=== PATIENT | male | born 1985 ===

== ENCOUNTER 2021-04-27 17:46 | Emergency (ER) | payer MEDICAID ==
[~2021-04-27] VITALS: Ht 190.5 cm; Wt 127.0 kg
[2021-04-27] MEDS ORDERED: ACETAMINOPHEN 500 MG TAB PO ONE (19:00)
[2021-04-27 19:43] VITALS: BP 136/85
[2021-04-27] MEDS ORDERED: cefTRIAXone SOD 1,000 MG VL IM ONE (20:00)
[2021-04-27] MEDS ORDERED: LIDOCAINE 1% HCL (LOCAL ANESTH.) INJ 20ML MDV IJ ONE (20:00)
[2021-04-27] MEDS ORDERED: TETANUS-DIPTH-ACEL PERTUSSIS 0.5ML SYR Tdap IM ONE (20:00)
== END 2021-04-27 22:08 | disposition home or self-care (01) ==
LOC: ER 17:46
DX: S01.81XA Laceration without foreign body of other part of head, initial encounter (principal); S01.511A Laceration without foreign body of lip, initial encounter; F10.129 Alcohol abuse with intoxication, unspecified; E66.9 Obesity, unspecified; E11.9 Type 2 diabetes mellitus without complications; I10 Essential (primary) hypertension; Y90.9 Presence of alcohol in blood, level not specified; Z68.35 Body mass index [BMI] 35.0-35.9, adult; W18.09XA Striking against other object with subsequent fall, initial encounter; Y93.89 Activity, other specified; Y92.89 Other specified places as the place of occurrence of the external cause; Y99.8 Other external cause status
CPT/HCPCS: 12016; 90471; 90715; 96372; 99284; J0696; J2001